=== PATIENT | male | born 1995 | race Caucasian/White ===

== ENCOUNTER 2016-05-15 10:00 | Emergency (ER) | payer SELFPAY ==
[~2016-05-15] VITALS: Wt 119.0 kg
[2016-05-15] MEDS ORDERED: CEPH-443 PO (10:40)
[2016-05-15] MEDS ORDERED: BACTDS PO (10:41)
[2016-05-15] MEDS ORDERED: MUPI22OI2 TOP (10:41)
--- NOTE | 2016-05-15 10:54 | ERD ---
ER Documentation Chief Complaint Date/Time DATE: 05/15/16 TIME: 10:48 Chief Complaint right lower abd. abscess noted since 3 days ago . no fevers. HPI This is a 20-year-old male presents to the ER with an abscess to his right lower abdomen. Patient states that it started as an ingrown hair on and that it has gradually been getting more painful and more swollen. Patient has gotten these in the past. He denies any fevers or chills. He has not tried anything for the pain. ROS 12 point review of systems was done, all negative except per HPI. Medications Home Meds Active Scripts Mupirocin* (Bactroban*) 2% -22 Gram Oint...g., 1 APPLIC TOP BID for 7 Days, EA Prov:JOANA,MARY C 05/15/16 Sulfamethoxazole-Trimethoprim* (Bactrim* DS) 800-160 Mg Tab, 1 TAB PO BID for 7 Days, TAB Prov:JOANA,MARY C 05/15/16 Cephalexin* (Keflex*) 500 Mg Capsule, 500 MG PO QID for 7 Days, CAP Prov:JOANA,MARY C 05/15/16 Physical Exam Vitals Vital Signs Date Time Temp Pulse Resp B/P Pulse Ox O2 Delivery O2 Flow Rate FiO2 05/15/16 10:07 98.0 82 21 136/79 99 Physical Exam GENERAL: The patient is well developed and appropriate for usual state of health , in no apparent distress. HEENT: Atraumatic. CHEST: Clear to auscultation bilaterally. There are no rales, wheezes or rhonchi. HEART: Regular rate and rhythm. No murmurs, clicks, rubs or gallops. ABDOMEN: soft non tender, no masses. there is a 3cm *4cm indurated abscess in the right lower abdomen, surrounding erythema, ttp. NEURO: Alert and oriented. SKIN: 3cm*4cm indurated abscess in the right lower abdomen, surrounding erythema , ttp. Procedures/MDM This is a 20-year-old male presents to the ER with an abscess to his right lower abdomen. At this time area is indurated. I am not able to incise and drain area as it is not fluctuant. Patient however does appear to have an infection as it is swollen and erythematous and tender to palpation. He will be sent home with Bactrim and Keflex. Also be sent home with bactroban to apply to his nasal nares. Patient also needs to apply warm compresses to the area. He needs to f/u with his PCP within 1-2 days or return to ER sooner if symptoms worsen. plan was discussed with patient, he understands and agrees with plan. Departure Diagnosis: Primary Impression: Abscess Condition: Stable Patient Instructions: Abscess, Antiobiotic Treatment Only Additional Instructions: Call your primary care doctor TOMORROW for an appointment during the next 1-2 days.See the doctor sooner or return here if your condition worsens before your appointment time. MARY BERNARD May 15, 2016 10:54
== END 2016-05-15 11:00 | disposition home or self-care (01) ==
LOC: FTE 10:00
DX: L02.211 Cutaneous abscess of abdominal wall (principal)
CPT/HCPCS: 99284